=== PATIENT | male | born 1965 | race Two or more races ===

== ENCOUNTER 2017-08-25 00:33 | Emergency (ER) | payer SELFPAY ==
[2017-08-25] MEDS ORDERED: methylPREDNISolone SOD SUCC PF 125 MG/2 ML VIAL. (00:53)
[2017-08-25] MEDS ORDERED: FAMOTIDINE 20 MG TABLET. (00:53)
[2017-08-25] MEDS ORDERED: diphenhydrAMINE HCL 25 MG CAPSULE PO (00:53)
[2017-08-25] MEDS: diphenhydrAMINE HCL 25 MG CAPSULE PO (00:54)
[2017-08-25] MEDS: FAMOTIDINE 20 MG TABLET. PO (00:54)
[2017-08-25] MEDS: methylPREDNISolone SOD SUCC PF 125 MG/2 ML VIAL. IM (00:55)
== END 2017-08-25 01:33 | disposition home or self-care (01) ==
LOC: ER 00:33
DX: T78.40XA Allergy, unspecified, initial encounter (principal); Z88.0 Allergy status to penicillin; X58.XXXA Exposure to other specified factors, initial encounter
CPT/HCPCS: 96372; 99283; J2930; Q0163